=== PATIENT | male | born 1960 | race Caucasian/White ===

== ENCOUNTER 2017-11-13 06:53 | Emergency (ER) | payer SELFPAY ==
[2017-11-13 07:13] VITALS: BP 136/85; PULSE 71; TEMP 98.1; BMI 29.9
[2017-11-13] MEDS ORDERED: SODIUM CHLORIDE 1,000 ML IV STA (08:04)
--- NOTE | 2017-11-13 09:20 | PDOC ---
History of Present Illness - General Chief Complaint: Urinary Problem Stated Complaint: urinary retention Time Seen by Provider: 11/13/17 07:36 History Source: Patient Exam Limitations: No Limitations - History of Present Illness Travel History: No Initial Comments: 11/13/17 09:02 57-year-old male with alcohol abuse presents to the ED with complaints of urinary retention . Patient voided at 1 AM but then as per patient tried to urinate again around 3 AM with no urinary output and then again this morning with no results. Patient also complaining of suprapubic pressure worsening in severity since this a.m. Patient states similar symptom approximately a year ago requiring him to fully catheter placed and did not follow-up with urologist as recommended. patient believes his prostate is the cause but again did not follow-up with a urologist. Patient denies back pain, fever, chills, nausea, or renal disease Timing/Duration: reports: constant, getting worse Quality: reports: moderate, fullness Abdominal Pain Onset Location: reports: suprapubic Aggravating Factors: improves with: None Alleviating Factors: improves with: None Past History - Travel Traveled outside of the country in the last 30 days: No - Past Medical History Allergies/Adverse Reactions: Allergies Allergy/AdvReac Type Severity Reaction Status Date / Time No Known Allergies Allergy Verified 11/13/17 07:09 COPD: No - Suicide/Smoking/Psychosocial Hx Smoking History: Never smoked Have you smoked in the past 12 months: No Information on smoking cessation initiated: No Hx Alcohol Use: Yes Drug/Substance Use Hx: No Substance Use Type: None Patient Lives Alone: No Lives with/in: spouse/SO Review of Systems - Review of Systems Able to Perform ROS?: Yes Constitutional: No: Symptoms Reported Respiratory: No: Symptoms reported ABD/GI: Yes: See HPI : Yes: See HPI Musculoskeletal: No: Back Pain Neurological: No: Symptoms reported *Physical Exam - Vital Signs Last Vital Signs Temp Pulse Resp BP Pulse Ox 98.1 F 71 18 136/85 100 11/13/17 07:10 11/13/17 07:10 11/13/17 07:10 11/13/17 07:10 11/13/17 07:10 - Physical Exam General Appearance: Yes: Nourished, Appropriately Dressed. No: Apparent Distress Gastrointestinal/Abdominal: positive: Soft, Distended (suprapubic over bladder) , Tenderness (suprapubic) Male Genitalia: positive: normal genitalia Musculoskeletal: negative: CVA Tenderness Extremity: positive: Normal Capillary Refill. negative: Pedal Edema Integumentary: positive: Normal Color, Warm, Moist Neurologic: positive: Motor Strength 5/5 (ambulatory) ED Treatment Course - LABORATORY CBC & Chemistry Diagram: 11/13/17 08:53 11/13/17 08:53 - RADIOLOGY Radiology Studies Ordered: Category Date Time Status PELVIC / BLADDER US [US] Stat Ultrasound 11/13/17 08:04 Ordered Medical Decision Making - Medical Decision Making 11/13/17 09:06 Patient with urinary retention since early this a.m. Patient on exam had suprapubic tenderness with distention over the bladder. Patient ordered for Garcia catheter placement, CBC, comp, urinalysis urine culture along with bladder ultrasound. 11/13/17 10:26 Laboratory Tests 11/13/17 11/13/17 08:53 08:53 WBC 6.3 Hgb 13.3 Hct 41.4 Plt Count 293 Urine Blood 1+ H Urine Nitrite Negative Ur Leukocyte Esterase Negative 11/13/17 10:49 Laboratory Tests 11/13/17 11/13/17 08:53 08:53 Sodium 142 Potassium 3.9 Chloride 109 H Carbon Dioxide 24 Anion Gap 9 BUN 8 Creatinine 0.6 L Random Glucose 98 Calcium 8.1 L Total Bilirubin 0.4 AST 35 ALT 53 Total Protein 7.4 Urine WBC (Auto) <1 Urine RBC (Auto) None Ultrasound showed no acute findings. Patient had 1000 mL drain into the leg bag and states has no discomfort now feeling much better. Patient be discharged home with leg bag and referral to urologist. Patient understands to return here in 2-3 days if unable to get an appointment with the urologist. *DC/Admit/Observation/Transfer Diagnosis at time of Disposition: Retention, urine - Discharge Dispostion Disposition: HOME Condition at time of disposition: Improved - Referrals Referrals: Kp Oh MD [Staff Physician] - - Patient Instructions Printed Discharge Instructions: DI for Urinary Retention in Men, How to Care for Your Garcia Catheter -- Male Additional Instructions: Please continue to empty the leg bag as instructed. Please also follow up with referred urologist. If you develop any abdominal pain or decreased urine output please return to the ED. If unable to get an appointment with the urologist in 2-3 days please return to ED for.catheter removal. - Post Discharge Activity
[2017-11-13 09:45] LABS: BASO % 1.1 % (0-2.0); EOS % 1.4 % (0-4.5); HEMATOCRIT 41.4 % (35.4-49); HEMOGLOBIN 13.3 GM/dL (11.7-16.9); LYMPH % 20.7 % (8-40); MCH 27.3 pg (25.7-33.7); MCHC 32.1 g/dl (32.0-35.9); MEAN CELL VOLUME 85.2 fl (80-96); MEAN PLT VOLUME 7.8 fl (7.5-11.1); MONO % 5.3 % (3.8-10.2); NEUT % 71.5 % (42.8-82.8); PLATELET COUNT 293 K/MM3 (134-434); RBC 4.86 M/mm3 (4.00-5.60); RDW 14.3 % (11.9-15.9); WHITE BLOOD COUNT 6.3 K/mm3 (4.0-10.0)
[2017-11-13] MEDS ORDERED: LACTATED RINGERS SOLUTION 1,000 ML/1,000 ML INFUS.BAG IV SCH (09:45)
[2017-11-13 10:07] LABS: ALBUMIN 3.8 g/dl (3.4-5.0); ANION GAP 9 (8-16); BILIRUBIN,TOTAL 0.4 mg/dL (0.2-1.0); BLOOD UREA NITROGEN 8 mg/dL (7-18); CALCIUM 8.1 mg/dL (8.5-10.1); CHLORIDE 109 mmol/L (98-107); CO2 24 mmol/L (21-32); CREATININE 0.6 mg/dL (0.7-1.3); GLUCOSE,RANDOM 98 mg/dL (74-106); POTASSIUM 3.9 mmol/L (3.5-5.1); SGOT/AST 35 U/L (15-37); SGPT/ALT 53 U/L (12-78); SODIUM 142 mmol/L (136-145); TOT PROT 7.4 g/dl (6.4-8.2)
[2017-11-13 10:08] LABS: ALK PHOS 103 U/L (45-117)
[2017-11-13 10:17] LABS: URINE APPEARANCE CLEAR; URINE BILIRUBIN NEGATIVE (NEGATIVE); URINE BLOOD 1+ (NEGATIVE); URINE COLOR STRAW; URINE GLUCOSE (UA) NEGATIVE (NEGATIVE); URINE KETONE NEGATIVE (NEGATIVE); URINE LEUK ESTERASE NEGATIVE (NEGATIVE); URINE NITRITE NEGATIVE (NEGATIVE); URINE PROTEIN NEGATIVE (NEGATIVE); URINE UROBILINOGEN NEGATIVE mg/dL (0.2-1.0)
[2017-11-13 10:23] LABS: URINE BACTERIA RARE /hpf (NONE SEEN); URINE MUCUS RARE
== END 2017-11-13 11:38 | disposition home or self-care (01) ==
LOC: JER 06:53 → EDBD 06:53 → JER 11:38
PROC: 0T9B70Z Drainage of Bladder with Drainage Device, Via Natural or Artificial Opening (ICD-10-PCS; principal; 2017-11-13)
PROC: 3E0337Z Introduction of Electrolytic and Water Balance Substance into Peripheral Vein, Percutaneous Approach (ICD-10-PCS; 2017-11-13)
DX: R33.8 Other retention of urine (principal)
CPT/HCPCS: 36415; 76856-TC; 80053; 81003; 81015; 85025; 87086; 99283-25

== ENCOUNTER 2017-11-16 15:47 | Emergency (ER) | payer SELFPAY ==
--- NOTE | 2017-11-16 15:55 | PDOC ---
Rapid Medical Evaluation Time Seen by Provider: 11/16/17 15:49 Medical Evaluation: Allergies Allergy/AdvReac Type Severity Reaction Status Date / Time No Known Allergies Allergy Verified 11/13/17 07:09 11/16/17 15:54 I have performed a brief in-person evaluation of this patient. The patient presents with a chief complaint of: was here on tuesday, told to come back for catheter removal if unable to see specialist, "specialist only speaks ukrainian so we couldn't see him." c/o nausea, chills, denies fever, vomiting, diarrhea Pertinent physical exam findings: n/a I have ordered the following: ua, ucx The patient will proceed to the ED for further evaluation. Discharge Disposition - Diagnosis Urinary catheter insertion/adjustment/removal - Referrals - Patient Instructions - Post Discharge Activity
[2017-11-16 16:35] VITALS: BP 118/76; PULSE 81; TEMP 98.3; BMI 32.9
--- NOTE | 2017-11-16 17:20 | PDOC ---
History of Present Illness - General Chief Complaint: Urinary Catheter Problem Stated Complaint: EVALUATION (PCP SENT) Time Seen by Provider: 11/16/17 15:49 History Source: Patient Exam Limitations: No Limitations - History of Present Illness Travel History: No Timing/Duration: reports: constant Abdominal Pain Onset Location: reports: suprapubic Past History - Travel Traveled outside of the country in the last 30 days: No Close contact w/someone who was outside of country & ill: No - Past Medical History Allergies/Adverse Reactions: Allergies Allergy/AdvReac Type Severity Reaction Status Date / Time No Known Allergies Allergy Verified 11/13/17 07:09 Home Medications: Ambulatory Orders NK [No Known Home Medication] 11/16/17 COPD: No Disorders: Yes (urinary retention) - Immunization History Immunization Up to Date: Yes - Suicide/Smoking/Psychosocial Hx Smoking History: Never smoked Have you smoked in the past 12 months: No Information on smoking cessation initiated: No Hx Alcohol Use: Yes Drug/Substance Use Hx: No Substance Use Type: None Review of Systems - Review of Systems Able to Perform ROS?: Yes Is the patient limited Mohawk proficient: Yes Constitutional: Yes: Symptoms Reported, See HPI, Malaise HEENTM: No: Symptoms Reported Respiratory: No: Symptoms reported : Yes: Symptoms Reported, See HPI *Physical Exam - Vital Signs Last Vital Signs Temp Pulse Resp BP Pulse Ox 98.3 F 81 20 118/76 95 11/16/17 15:56 11/16/17 15:56 11/16/17 15:56 11/16/17 15:56 11/16/17 15:56 - Physical Exam General Appearance: Yes: Nourished, Appropriately Dressed HEENT: positive: TYLER, Normal ENT Inspection, TMs Normal, Pharynx Normal Neck: positive: Supple. negative: Tender Respiratory/Chest: positive: Lungs Clear Gastrointestinal/Abdominal: positive: Soft. negative: Tender Male Genitalia: positive: normal genitalia, hematuria (with intact catheter / leg bag. 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 Is case with Dr. Burns as resolve this who will accept patient tomorrow however to notify patient that will be self-pay and there will be a cast requirement for evaluation and treatment. This was relayed to and patient and understand they'll will need to call for appointment tomorrow for reevaluation and potential catheter removal *DC/Admit/Observation/Transfer Diagnosis at time of Disposition: Urinary catheter insertion/adjustment/removal - Discharge Dispostion Disposition: HOME Condition at time of disposition: Stable Admit: No - Referrals Referrals: Terry Camilo MD [Staff Physician] - - Patient Instructions Printed Discharge Instructions: DI for Urinary Retention in Men Additional Instructions: call for appointment tomorrow with Dr Camilo's office for evaluation and removal of catheter. . - Post Discharge Activity Forms/Work/School Notes: Back to Work
== END 2017-11-16 17:49 | disposition home or self-care (01) ==
LOC: JERFT 15:47
DX: Z46.6 Encounter for fitting and adjustment of urinary device (principal)
CPT/HCPCS: 99281-25